=== PATIENT | female | born 1950 | race Caucasian/White ===

== ENCOUNTER 2016-04-10 00:52 | Emergency (ER) | payer OTHER ==
[~2016-04-10] VITALS: Ht 165.1 cm; Wt 104.5 kg
[2016-04-10 00:57] VITALS: Ht 165.1 cm; Wt 104.5 kg
[2016-04-10] MEDS ORDERED: hydrALAzine 20 MG INJ IV ONE (02:30)
[2016-04-10 02:44] LABS: ADD SCAN DIFF NO
[2016-04-10 02:48] LABS: BASOPHIL # 0.1 10^3/ul (0.0-0.1); BASOPHILS % 0.8 % (0.0-2.0); EOSINOPHILS # 0.7 10^3/ul (0.0-0.5); EOSINOPHILS % 6.7 % (0.0-7.0); LYMPHOCYTES # 2.8 10^3/ul (0.8-2.9); MEAN CORPUSCULAR HEMOGLOBIN 29.4 pg (29.0-33.0); MEAN CORPUSCULAR HGB CONC 31.8 g/dl (32.0-37.0); MEAN CORPUSCULAR VOLUME 92.4 fl (82.0-101.0); MEAN PLATELET VOLUME 11.2 fl (7.4-10.4); MONOCYTE # 0.7 10^3/ul (0.3-0.9); MONOCYTES % 6.8 % (0.0-11.0); NEUTROPHIL # 5.7 10^3/ul (1.6-7.5); NEUTROPHILS % 57.3 % (39.0-77.0); PLATELET COUNT 246 10^3/UL (140-415); RED BLOOD COUNT 4.76 10^6/ul (4.20-5.40); RED CELL DISTRIBUTION WIDTH 13.2 % (11.5-14.5); WHITE BLOOD COUNT 9.9 10^3/ul (4.8-10.8)
[2016-04-10 02:56] LABS: INR 0.88; PROTIME 11.9 Sec (12.2-14.2); PT RATIO 0.9
[2016-04-10 02:57] LABS: PARTIAL THROMBOPLASTIN TIME 31.3 Sec (25.0-35.0)
--- NOTE | 2016-04-10 02:58 | RADRPT ---
PROCEDURE: XR Chest. CLINICAL INDICATION: Hypertension and chest pain. TECHNIQUE: Single frontal view of the chest was obtained COMPARISON: None FINDINGS: Cardiomegaly with mild pulmonary vascular congestion. There is no pleural effusion or pneumothorax. IMPRESSION: Mild pulmonary vascular congestion. RPTAT: [facility] Physician Dali Date Time Electronically viewed and signed by Rayray Gold Physician on 04/10/2016 02:57 RS/
[2016-04-10 03:02] LABS: ALBUMIN 3.9 g/dl (3.3-4.9); CHLORIDE 99 mmol/L (97-110); SODIUM 141 mmol/L (135-144)
[2016-04-10 03:03] LABS: POTASSIUM 4.6 mmol/L (3.5-5.1)
[2016-04-10 03:05] LABS: ALANINE AMINOTRANSFERASE 28 IU/L (13-69); ALBUMIN/GLOBULIN RATIO 1.18; ALKALINE PHOSPHATASE 76 IU/L (42-121); ANION GAP 15 (8-16); ASPARTATE AMINO TRANSFERASE 20 IU/L (15-46); BILIRUBIN,INDIRECT 0.3 mg/dl (0-1.1); BILIRUBIN,TOTAL 0.3 mg/dl (0.2-1.3); BLOOD UREA NITROGEN 18 mg/dl (7-20); CALCIUM 9.6 mg/dl (8.4-10.2); CARBON DIOXIDE 32 mmol/L (21-31); CREATININE 0.68 mg/dl (0.44-1.00); GLUCOSE 153 mg/dl (70-220); TOTAL PROTEIN 7.2 g/dl (6.1-8.1)
[2016-04-10 03:14] LABS: B-TYPE NATRIURETIC PEPTIDE 346 PG/ML (0-125)
[2016-04-10 03:24] LABS: TROPONIN-I < 0.012 ng/ml (0.00-0.12)
[2016-04-10 03:57] VITALS: BP 142/71; PULSE 70; RESP 21
--- NOTE | 2016-04-10 04:03 | ERD ---
ER Documentation Chief Complaint Date/Time DATE: 04/10/16 TIME: 04:02 Chief Complaint C/O HIGH BP TONIGHT. STATES BP MEDS NOT WORKING. NO CP/SOB, +CRUMP/NECK PAIN HPI This is a 66-year-old female console blood pressure diabetes his BP meds are not working. No chest pain or shortness breath and mild headache. No other current complaints. ROS All systems reviewed and are negative except as per history of present illness. PMhx/Soc History of Surgery: No Anesthesia Reaction: No Hx Neurological Disorder: No Hx Respiratory Disorders: No Hx Cardiac Disorders: Yes (htn, hyperlipids) Hx Psychiatric Problems: No Hx Miscellaneous Medical Probl: Yes (dm) Hx Alcohol Use: No Hx Substance Use: No Hx Tobacco Use: No Smoking Status: Never smoker Physical Exam Vitals Vital Signs Date Time Temp Pulse Resp B/P Pulse Ox O2 Delivery O2 Flow Rate FiO2 04/10/16 03:57 70 21 142/71 99 Room Air 04/10/16 00:57 97.6 69 18 209/93 99 Physical Exam Const: [] Head: Atraumatic Eyes: Normal Conjunctiva ENT: Normal External Ears, Nose and Mouth. Neck: Full range of motion..~ No meningismus. Resp: Clear to auscultation bilaterally Cardio: Regular rate and rhythm, no murmurs Abd: Soft, non tender, non distended. Normal bowel sounds Skin: No petechiae or rashes Back: No midline or flank tenderness Ext: No cyanosis, or edema Neur: Awake and alert Psych: Normal Mood and Affect Result Diagram: 04/10/16 0230 04/10/16 0230 Results 24 hrs Laboratory Tests Test 04/10/16 02:30 Activated Partial Thromboplast Time 31.3Sec Alanine Aminotransferase (ALT/SGPT) 28IU/L Albumin 3.9g/dl Albumin/Globulin Ratio 1.18 Alkaline Phosphatase 76IU/L Anion Gap 15 Aspartate Amino Transf (AST/SGOT) 20IU/L B-Type Natriuretic Peptide 346PG/ML Basophils # 0.110^3/ul Basophils % 0.8% Blood Urea Nitrogen 18mg/dl Calcium Level 9.6mg/dl Carbon Dioxide Level 32mmol/L Chloride Level 99mmol/L Creatinine 0.68mg/dl Direct Bilirubin 0.00mg/dl Eosinophils # 0.710^3/ul Eosinophils % 6.7% Globulin 3.30g/dl Glucose Level 153mg/dl Hematocrit 44.0% Hemoglobin 14.0g/dl INR International Normalized Ratio 0.88 Indirect Bilirubin 0.3mg/dl Lymphocytes # 2.810^3/ul Lymphocytes % 28.0% Mean Corpuscular Hemoglobin 29.4pg Mean Corpuscular Hemoglobin Concent 31.8g/dl Mean Corpuscular Volume 92.4fl Mean Platelet Volume 11.2fl Monocytes # 0.710^3/ul Monocytes % 6.8% Neutrophils # 5.710^3/ul Neutrophils % 57.3% Nucleated Red Blood Cells # 0.010^3/ul Nucleated Red Blood Cells % 0.0/100WBC Platelet Count 09132^3/UL Potassium Level 4.6mmol/L Prothrombin Time 11.9Sec Prothrombin Time Ratio 0.9 Red Blood Count 4.7610^6/ul Red Cell Distribution Width 13.2% Sodium Level 141mmol/L Total Bilirubin 0.3mg/dl Total Protein 7.2g/dl Troponin I < 0.012ng/ml White Blood Count 9.910^3/ul Current Medications Medications (Trade) Dose Ordered Sig/Natasha Route PRN Reason Start Time Stop Time Status Last Admin Dose Admin Hydralazine HCl (Apresoline) 20 mg ONCE ONCE IV 04/10/16 02:30 04/10/16 02:31 DC 04/10/16 02:34 Procedures/MDM EKG: Rate/Rhythm: Normal sinus rhythm QRS, ST, T-waves: No changes consistent w/ acute ischemia Impression: No evidence of ischemia or arrhythmia Chest X-ray 1V Interpreted by me: Soft Tissue: No acute abnormalities Bones: No acute abnormalities Mediastinum/Cardiac Silhouette/Lungs: No acute abnormalities Patient's blood pressure was elevated (>120/80) but appears stable without evidence of hypertension emergency or urgency. The patient was counseled about the risks of hypertension and urged to pursue outpatient monitoring and therapy within a week with their primary care physician. Departure Diagnosis: Primary Impression: Hypertension Hypertension type: essential hypertension Qualified Code: I10 - Essential hypertension Condition: Stable GABINO FERNANDEZ Apr 10, 2016 04:03
== END 2016-04-10 04:20 | disposition home or self-care (01) ==
LOC: E/R 00:52
DX: I10 Essential (primary) hypertension (principal); E11.9 Type 2 diabetes mellitus without complications; R07.9 Chest pain, unspecified
CPT/HCPCS: 36415; 71010; 80053; 83880; 84484; 85025; 85610; 85730; 93005; 96374; 99285; J0360